=== PATIENT | female | born 1965 | race Caucasian/White ===

== ENCOUNTER 2017-08-24 05:51 | Day surgery (SDC) | payer MEDICARE, MEDICAID ==
[2017-08-21 09:08] VITALS: BMI 44.4
[2017-08-24] MEDS ORDERED: Scopolamine 1.5 mg/72 hour Patch ONE (08:30)
[2017-08-24] MEDS ORDERED: Midazolam HCl 2 mg/2 ml Vial ONE (08:30)
[2017-08-24] MEDS ORDERED: Gelfilm 1 EA Packet ONE (09:59)
[2017-08-24] MEDS ORDERED: EPINEPHrine 1 MG/ML AMP ONE (09:59)
[2017-08-24] MEDS ORDERED: Ciprofloxacin 0.2% Otic ONE (09:59)
[2017-08-24] MEDS ORDERED: Sodium Chloride 0.9% 10 ML ONE (09:59)
[2017-08-24] MEDS ORDERED: Lidocaine 1% w/Epinephrine 1:200K 30 ML VIAL ONE (09:59)
[2017-08-24] MEDS ORDERED: Bupivacaine/Epinephrine 0.25% 30 ML VIAL ONE (09:59)
[2017-08-24] MEDS ORDERED: Bacitracin Zinc Ointment 30 gm TUBE ONE (09:59)
[2017-08-24] MEDS ORDERED: Fentanyl 250 MCG/5 ML VIAL ONE ×2 (10:10→12:26)
[2017-08-24] MEDS ORDERED: CEFAZOLIN/Water 2 GM/20 ML SYRINGE ONE (10:14)
--- NOTE | 2017-08-24 13:11 | OP ---
DATE OF PROCEDURE: 08/24/2017 PREOPERATIVE DIAGNOSIS: Left otosclerosis. PROCEDURE: 1. Left stapedectomy. 2. Microscopic surgical procedure. POSTOPERATIVE DIAGNOSIS: Left otosclerosis. SURGEON: Deangelo Zuluaga M.D. ANESTHESIA: General. COMPLICATIONS: None. ESTIMATED BLOOD LOSS: None. SPECIMENS: None. ASSISTANTS: None. DISPOSITION: Stable to recovery room. SUMMARY: Basic left stapedectomy. General anesthetic was necessary due to the patient's obesity and desire for general anesthetic. Straight forward 3/4 of the stapes removed, 4.25 Montero titanium p rosthesis with a keeper on the incus. Chorda tympani nerve was very, very thin and friable, but regan ined intact and relatively unmolested throughout the procedure. PROCEDURE IN DETAIL: 1. Left stapedectomy: After informed consent was obtained, the patient was taken to the operating r oom and placed in the supine position. General endotracheal anesthetic was administered. Table was rotated 180 degrees. Left ear was injected postauricular and transcanal 0.25% Marcaine with epinephr ine. The temporalis fascia was harvested from the supra auricular incision and that irrigated with s maggie and closed with 3-0 and Dermabond. Attention was brought to the ear canal with the microscope, which was irrigated with copious amounts of saline and then injected the vascular strip with 1% lido jorge luis with epinephrine. Tympanomeatal flap was elevated from the 12 and 6 o'clock position, carried down to the middle ear space and 1% lidocaine with epinephrine was placed on the promontory and the s cutum was curetted taking care to not traumatize the chorda tympani nerve. Malleus and incus moved w ell. The stapes was firmly fixed. Exposure was obtained and Gelfoam was removed from the middle ear space, IS joint with a Enciso needle and down fractured the stapes with the same. Bellucci scissors cut the stapedial tendon and removed the stapes suprastructure. Straight needle was used t o make a control hole in the mid portion of the stapes and remove the majority of the footplate appro ximately 3/4. The graft was placed and then the prosthesis with a 2 handed technique with good place ment and a keeper on the incus. The flap was then placed back down and Gelfoam was used to pack the ear canal generously and compressed to counteract any potential call for problems from waking from an esthesia. Bacitracin ointment filled the canal and a cotton ball was applied. 2. Microscopic surgical procedure: Throughout the entirety of the operation, the microscope was an integral part of procedure used from 214 power and high illumination. The patient tolerated this pr ocedure well and was turned over to Anesthesia in a stable condition.
== END 2017-08-24 13:50 | disposition home or self-care (01) ==
LOC: SDC 05:51
PROVIDERS: ATTEND Otolaryngology Otology & Neurotology
PROC: 09B Ear, Nose, Sinus, Excision (ICD-10-PCS; principal; 2017-08-24)
DX: H80.92 Unspecified otosclerosis, left ear (principal); H90.8 Mixed conductive and sensorineural hearing loss, unspecified; H60.90 Unspecified otitis externa, unspecified ear; Z88.1 Allergy status to other antibiotic agents; Z88.5 Allergy status to narcotic agent; Z88.8 Allergy status to other drugs, medicaments and biological substances; Z91.040 Latex allergy status
CPT/HCPCS: 36415; 85014; 93005; 93010; 96374; A4216; J0171; J2250; J3010; J3490